=== PATIENT | male | born 1955 | race Two or more races ===

== ENCOUNTER 2020-08-31 07:59 | Emergency (ER) | payer OTHER ==
[~2020-08-31] VITALS: Ht 167.6 cm; Wt 83.0 kg
[2020-08-31] MEDS ORDERED: ONDANSETRON 2MG/ML, 2ML IVPush ONE (08:30)
[2020-08-31] MEDS ORDERED: SODIUM CHLORIDE FLUSH 10ML SYR IVF ONE (08:30)
[2020-08-31] MEDS ORDERED: MORPHINE SULFATE 4 MG/ML, 1ML IVPush PRN (08:30)
[2020-08-31] MEDS ORDERED: SODIUM CHLORIDE 0.9% 1,000ML IVBOLUS ONE (08:30)
[2020-08-31] MEDS ORDERED: MORPHINE SULFATE 4 MG/ML, 1ML ONE (08:58)
[2020-08-31] MEDS ORDERED: ONDANSETRON 2MG/ML, 2ML ONE (08:58)
[2020-08-31 09:00] LABS: BASOPHILS % (AUTO) 1 % (0-1); EOSINOPHILS % (AUTO) 0 % (1-7); LYMPHOCYTES % (AUTO) 21 % (22-44); MEAN CORPUSCULAR HEMOGLOBIN 30.6 pg (27.5-34.5); MEAN CORPUSCULAR HGB CONC 34.5 g/dL (33.2-36.2); MEAN PLATELET VOLUME 7.7 fL (7.4-10.4); MONOCYTES % (AUTO) 7 % (2-9); NEUTROPHILS % (AUTO) 71 % (42-75); PLATELET COUNT 240 x10^3/uL (130-400); RED BLOOD COUNT 5.53 x10^6/uL (4.38-5.82); RED CELL DISTRIBUTION WIDTH 13.8 % (9.4-14.8)
[2020-08-31 09:03] LABS: MD NO
[2020-08-31 09:13] LABS: ALBUMIN 4.7 g/dL (3.4-5.0); ANION GAP 13 mmol/L (5-15); CALCIUM 10.1 mg/dL (8.5-10.1); CHLORIDE 96 mmol/L (98-107)
[2020-08-31 09:19] LABS: ALANINE AMINOTRANSFERASE 51 U/L (12-78); ALKALINE PHOSPHATASE 64 U/L (45-117); BILIRUBIN,TOTAL 1.1 mg/dL (0.2-1.0); CREATININE 1.19 mg/dL (0.7-1.3); TOTAL PROTEIN 8.7 g/dL (6.4-8.2); TROPONIN I < 0.015 ng/mL (0.000-0.045)
[2020-08-31 09:50] VITALS: BP 118/82
--- NOTE | 2020-08-31 09:52 | NUR ---
[facility]PA AT BEDSIDE TO DISCUSS POC AND DISCHARGE DISPO.
--- NOTE | 2020-08-31 10:02 | NUR ---
IV removed with tip intact. Patient given discharge instructions and prescription and they have confirmed that they understand the instructions. Patient stable and ambulatory with steady gait from ED with significant other to private vehicle.
[2020-09-01] MEDS ORDERED: ATOR10TA9 PO (16:57)
[2020-09-01] MEDS ORDERED: DOXA2TAB9 PO (16:57)
[2020-09-01] MEDS ORDERED: SEMA14TA PO (16:57)
[2020-09-01] MEDS ORDERED: TRIA1CAP3 PO (16:57)
[2020-09-01] MEDS ORDERED: SUCR1TAB PO (16:57)
[2020-09-01] MEDS ORDERED: CARV-39 PO (16:57)
== END 2020-08-31 10:03 | disposition home or self-care (01) ==
LOC: ED 09:26
DX: K29.00 Acute gastritis without bleeding (principal); R10.13 Epigastric pain; R11.2 Nausea with vomiting, unspecified; I10 Essential (primary) hypertension; E11.9 Type 2 diabetes mellitus without complications; Z87.891 Personal history of nicotine dependence
CPT/HCPCS: 36415; 71045; 80053; 83690; 84484; 85025; 93005; 96361; 96374; 96375; 99285; J2270; J2405; J7030

== ENCOUNTER 2020-09-01 11:07 | Observation (INO) | payer OTHER ==
[~2020-09-01] VITALS: Ht 168.9 cm; Wt 84.5 kg
[2020-09-01 11:46] LABS: BASOPHILS % (AUTO) 1 % (0-1); EOSINOPHILS % (AUTO) 1 % (1-7); LYMPHOCYTES % (AUTO) 16 % (22-44); MEAN CORPUSCULAR HEMOGLOBIN 30.4 pg (27.5-34.5); MEAN CORPUSCULAR HGB CONC 34.1 g/dL (33.2-36.2); MEAN PLATELET VOLUME 7.8 fL (7.4-10.4); MONOCYTES % (AUTO) 5 % (2-9); NEUTROPHILS % (AUTO) 78 % (42-75); PLATELET COUNT 252 x10^3/uL (130-400); RED BLOOD COUNT 5.34 x10^6/uL (4.38-5.82); RED CELL DISTRIBUTION WIDTH 13.4 % (9.4-14.8)
[2020-09-01 11:48] LABS: MD NO
[2020-09-01 11:57] LABS: ALANINE AMINOTRANSFERASE 47 U/L (12-78); ALBUMIN 4.6 g/dL (3.4-5.0); ANION GAP 14 mmol/L (5-15); CALCIUM 9.6 mg/dL (8.5-10.1); CHLORIDE 96 mmol/L (98-107); CREATININE 1.22 mg/dL (0.7-1.3)
[2020-09-01 12:01] LABS: ALKALINE PHOSPHATASE 62 U/L (45-117); BILIRUBIN,TOTAL 1.3 mg/dL (0.2-1.0); TOTAL PROTEIN 8.5 g/dL (6.4-8.2); TROPONIN I < 0.015 ng/mL (0.000-0.045)
--- NOTE | 2020-09-01 12:30 | NUR ---
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
[2020-09-01] MEDS ORDERED: ONDANSETRON 2MG/ML, 2ML ONE (13:09)
[2020-09-01] MEDS ORDERED: MAALOX/HYOSCYAMINE/LIDOCAINE 45 ML BTL ONE (13:09)
--- NOTE | 2020-09-01 13:21 | NUR ---
THIS IS A 64 YEAR OLD MALE WHO C/O STERNAL CHEST PAIN, BACK PAIN, NAUSEA, STARTED YESTERDAY. PT WAS SEEN HERE YESTERDAY FOR SAME. HAVING BURNING IN THROAT. 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 DISCUSSED PLAN OF CARE, PT VERBALIZED UNDERSTANDING
[2020-09-01] MEDS ORDERED: MAALOX/HYOSCYAMINE/LIDOCAINE 45 ML BTL PO ONE (13:30)
[2020-09-01] MEDS ORDERED: SODIUM CHLORIDE 0.9% 1,000ML IVBOLUS ONE (13:30)
[2020-09-01] MEDS ORDERED: ONDANSETRON 2MG/ML, 2ML IVPush ONE (13:30)
--- NOTE | 2020-09-01 13:48 | NUR ---
PT SLEEPING, RESP EVEN AND UNLABORED
[2020-09-01] MEDS ORDERED: BUTALB/APAP/CAFFEINE 50MG/325MG/40MG PO PRN ×2 (15:00)
[2020-09-01] MEDS ORDERED: hydrALAzine 20 MG/ML, 1ML IVPush PRN (15:00)
[2020-09-01] MEDS ORDERED: ONDANSETRON ODT 4 MG PO PRN (15:00)
[2020-09-01] MEDS ORDERED: BACLOFEN 10 MG TABLET PO PRN (15:00)
[2020-09-01] MEDS ORDERED: GUAIFENESIN/DM 200-20MG, 10ML UDC PO PRN (15:00)
[2020-09-01] MEDS ORDERED: ENALAPRILAT 1.25 MG/ML, 2ML IVPush PRN (15:00)
--- NOTE | 2020-09-01 16:01 | NUR ---
REPORT TO SCOTT DELANEY, PLAN OF CARE DISCUSSED.
[2020-09-01 16:40] VITALS: BP 148/90
[2020-09-01] MEDS ORDERED: SUCR1TAB PO (16:57)
[2020-09-01] MEDS ORDERED: SEMA14TA PO (16:57)
[2020-09-01] MEDS ORDERED: TRIA1CAP3 PO (16:57)
[2020-09-01] MEDS ORDERED: DOXA2TAB9 PO (16:57)
[2020-09-01] MEDS ORDERED: CARV-39 PO (16:57)
[2020-09-01] MEDS ORDERED: ATOR10TA9 PO (16:57)
[2020-09-01] MEDS: ENOXAPARIN 40 MG/0.4 ML SQ SCH (17:03)
[2020-09-01] MEDS ORDERED: morphine SULFATE 10 MG/ML, 1ML IVPush PRN (17:30)
[2020-09-01 17:58] VITALS: BP 160/94
[2020-09-01 18:04] LABS: TROPONIN I < 0.015 ng/mL (0.000-0.045)
[2020-09-01] MEDS ORDERED: OMNIPAQUE 350 MG/ML, 100ML BOTTLE ONE (18:53)
[2020-09-01 21:03] VITALS: BP 137/81
[2020-09-01] MEDS: MELATONIN 5 MG TABLET PO SCH (21:05)
[2020-09-01 23:35] LABS: TROPONIN I < 0.015 ng/mL (0.000-0.045)
[2020-09-02 01:22] VITALS: BP 123/72
[2020-09-02 05:23] LABS: BASOPHILS % (AUTO) 0 % (0-1); EOSINOPHILS % (AUTO) 0 % (1-7); LYMPHOCYTES % (AUTO) 14 % (22-44); MEAN CORPUSCULAR HEMOGLOBIN 30.2 pg (27.5-34.5); MEAN CORPUSCULAR HGB CONC 33.8 g/dL (33.2-36.2); MEAN PLATELET VOLUME 7.9 fL (7.4-10.4); MONOCYTES % (AUTO) 12 % (2-9); NEUTROPHILS % (AUTO) 73 % (42-75); PLATELET COUNT 234 x10^3/uL (130-400); RED BLOOD COUNT 4.85 x10^6/uL (4.38-5.82); RED CELL DISTRIBUTION WIDTH 13.5 % (9.4-14.8)
[2020-09-02 05:24] LABS: MD NO
[2020-09-02 05:32] LABS: ANION GAP 13 mmol/L (5-15); CALCIUM 8.2 mg/dL (8.5-10.1); CHLORIDE 102 mmol/L (98-107); CREATININE 0.95 mg/dL (0.7-1.3)
[2020-09-02 07:28] VITALS: BP 105/69
[2020-09-02] MEDS ORDERED: POTASSIUM CHLORIDE 20 MEQ in SODIUM CHLORIDE 0.9% 250 ML IV ONE (09:00)
[2020-09-02] MEDS ORDERED: POTASSIUM CHLORIDE 20 MEQ TAB.ER.PRT ONE (09:22)
[2020-09-02] MEDS: SENNA/DOCUSATE TABLET PO SCH (09:27)
[2020-09-02] MEDS ORDERED: POTASSIUM CHLORIDE 20 MEQ TAB.ER.PRT PO ONE (09:30)
[2020-09-02] MEDS ORDERED: REGADENOSON 0.4 MG/5 ML SYRINGE ONE (11:12)
[2020-09-02 12:57] VITALS: BP 131/78
[2020-09-02] MEDS: ENOXAPARIN 40 MG/0.4 ML SQ SCH (16:35)
[2020-09-02 19:38] VITALS: BP 147/83
[2020-09-02] MEDS: MELATONIN 5 MG TABLET PO SCH (20:23)
[2020-09-02] MEDS: ONDANSETRON 2MG/ML, 2ML IVPush PRN (20:23)
[2020-09-03 00:46] VITALS: BP 123/82
[2020-09-03 08:09] VITALS: BP 151/98
[2020-09-03] MEDS: ONDANSETRON 2MG/ML, 2ML IVPush PRN (08:21)
[2020-09-03] MEDS: SENNA/DOCUSATE TABLET PO SCH (08:24)
[2020-09-03 12:03] VITALS: BP 151/95
[2020-09-03] MEDS: MAALOX/HYOSCYAMINE/LIDOCAINE 45 ML BTL PO ONE ×2 (13:00→17:07)
[2020-09-03] MEDS: ENOXAPARIN 40 MG/0.4 ML SQ SCH (17:07)
[2020-09-03 20:02] VITALS: BP 125/85
[2020-09-03] MEDS: MELATONIN 5 MG TABLET PO SCH (22:08)
[2020-09-04 03:55] VITALS: BP 141/90
[2020-09-04] MEDS: SENNA/DOCUSATE TABLET PO SCH (09:00)
[2020-09-04 09:50] VITALS: BP 154/66
[2020-09-04 10:09] LABS: BASOPHILS % (AUTO) 1 % (0-1); EOSINOPHILS % (AUTO) 1 % (1-7); LYMPHOCYTES % (AUTO) 23 % (22-44); MEAN CORPUSCULAR HEMOGLOBIN 29.7 pg (27.5-34.5); MEAN CORPUSCULAR HGB CONC 33.6 g/dL (33.2-36.2); MEAN PLATELET VOLUME 7.7 fL (7.4-10.4); MONOCYTES % (AUTO) 10 % (2-9); NEUTROPHILS % (AUTO) 65 % (42-75); PLATELET COUNT 240 x10^3/uL (130-400); RED BLOOD COUNT 5.24 x10^6/uL (4.38-5.82); RED CELL DISTRIBUTION WIDTH 13.3 % (9.4-14.8)
[2020-09-04 10:16] LABS: MD NO
[2020-09-04 14:11] LABS: ALBUMIN 3.5 g/dL (3.4-5.0); ANION GAP 11 mmol/L (5-15); CALCIUM 8.5 mg/dL (8.5-10.1); CHLORIDE 100 mmol/L (98-107); CREATININE 0.93 mg/dL (0.7-1.3)
[2020-09-04 14:50] VITALS: BP 126/75
[2020-09-04 15:40] VITALS: BP 164/94
[2020-09-04] MEDS ORDERED: CHOL500045 PO (15:56)
[2020-09-04] MEDS ORDERED: OMEP-110 PO (15:56)
[2020-09-04] MEDS ORDERED: MELA5TAB14 PO (15:56)
[2020-09-04] MEDS ORDERED: POTASSIUM CHLORIDE 20 MEQ TAB.ER.PRT PO ONE (16:00)
[2020-09-04] MEDS: ENOXAPARIN 40 MG/0.4 ML SQ SCH (16:16)
[2020-09-04] MEDS ORDERED: POTA20TA6 PO (16:36)
[2020-09-05] MEDS ORDERED: CHOLECALCIFEROL 5,000u TAB PO SCH (09:00)
== END 2020-09-04 17:33 | disposition home or self-care (01) ==
LOC: ED 11:26 → EDIP 14:47 → INTOOBSV 14:47 → 5SO 16:30
PROVIDERS: ADMIT Family Medicine; ATTEND Family Medicine
DX: R10.9 Unspecified abdominal pain (principal); R11.2 Nausea with vomiting, unspecified; R07.89 Other chest pain; K21.9 Gastro-esophageal reflux disease without esophagitis; I10 Essential (primary) hypertension; E11.65 Type 2 diabetes mellitus with hyperglycemia; E87.1 Hypo-osmolality and hyponatremia; E88.09 Other disorders of plasma-protein metabolism, not elsewhere classified; E80.7 Disorder of bilirubin metabolism, unspecified; Z79.899 Other long term (current) drug therapy
CPT/HCPCS: 36415; 71045; 74160; 78264; 78452; 80048; 80053; 80069; 82306; 83036; 83690; 83735; 84484; 85025; 93005; 93017; 96361; 96372; 96374; 96375; 96376; 99285; A9502; A9541; G0378; J1650; J2270; J2405; J2785; J7030; Q9967